=== PATIENT | female | born 1960 | race Caucasian/White ===

== ENCOUNTER 2018-11-02 11:04 | Outpatient (CLI) | payer OTHER ==
--- NOTE | 2018-11-02 19:29 | RAD ---
CHEST TWO VIEWS: 11/02/2018 FINDINGS: The heart is normal in size. The lungs are clear. No infiltrate or effusion is seen. There is no e vidence of active thoracic disease. IMPRESSION: No acute findings. POS: HOME
== END 2018-11-02 11:05 | disposition home or self-care (01) ==
LOC: BURRAD 11:04
PROVIDERS: ATTEND Physician Assistant
DX: Z11.1 Encounter for screening for respiratory tuberculosis (principal)
CPT/HCPCS: 71046

== ENCOUNTER 2018-11-17 11:22 | Outpatient (CLI) | payer OTHER ==
[2018-11-17 17:32] LABS: #Lymphocytes 1.2 thou/uL (1.20-3.40); #Monocytes 0.2 thou/uL (0.11-0.59); #Neutrophils 2.5 thou/uL (1.40-6.50); %Basophils 1.1 % (0.0-1.0); %Eosinophils 1.1 % (0.0-10.0); %Lymphocytes 30.9 % (21.0-51.0); %Monocytes 4.1 % (0.0-10.0); %Neutrophils 62.7 % (42.0-75.0); Hemoglobin 14.4 g/dL (12.0-16.0); Mean Corpuscular HGB CONC 34.4 g/dL (32.0-36.0); Mean Corpuscular Hemoglobin 32.6 pg (27.0-31.0); Mean Corpuscular Volume 94.6 fL (78.0-98.0); Mean Platelet Volume 7.9 fL (7.4-10.4); Platelet Count 245 thou/uL (130-400); RBC Distribution Width 11.2 % (11.5-14.5); Red Blood Cell (RBC) Count 4.43 mill/uL (4.20-5.40); White Blood Cell (WBC) Count 3.9 thou/uL (4.8-10.8)
[2018-11-17 18:15] LABS: HIV (1/2) Antibody/Antigen Non-Reactive (NonReactive); HIV 1/2 INDEX 0.07 S/CO (<1.00)
--- NOTE | 2018-11-17 21:02 | RAD ---
LEFT KNEE FOUR VIEWS: 11/17/18 No acute fracture was seen. There are some degenerative changes consisting of slight medial joint spa ce narrowing and osteophytes. Small joint effusion is suspected. IMPRESSION: 1. Mild degenerative change. 2. Joint fluid. POS: HOME
--- NOTE | 2018-11-17 22:11 | RAD ---
ABDOMEN 11/17/18 Supine views of the abdomen show a normal bowel gas pattern with no sign of obstruction or distended bowel. Various pelvic calcifications are most likely phleboliths. If there were urinary tract symptom s, then other studies would be needed. There is a question of a small calcification over the left kid marc. The bony structures showed no acute change. IMPRESSION: 1. No acute abdominal findings. 2. Question of calcification in or over left kidney. Correlate with clinical exam. POS: HOME
== END 2018-11-17 11:23 | disposition home or self-care (01) ==
LOC: BURRAD 11:22
PROVIDERS: ATTEND Physician Assistant
DX: Z11.4 Encounter for screening for human immunodeficiency virus [HIV] (principal); D72.819 Decreased white blood cell count, unspecified; M25.562 Pain in left knee; R10.10 Upper abdominal pain, unspecified; M17.12 Unilateral primary osteoarthritis, left knee; M25.462 Effusion, left knee
CPT/HCPCS: 36415; 74018; 85025; 87389